=== PATIENT | male | born 1990 | race Caucasian/White ===

== ENCOUNTER 2018-09-01 14:17 | Emergency (ER) | payer MEDICAID, OTHER ==
--- NOTE | 2018-09-01 14:42 | EDPHY ---
H & P Smoking Status: Never smoked Time Seen by Provider: 09/01/18 14:31 HPI/ROS: HPI Right lower abdominal pain. 28-year-old male by private vehicle. The patient was referred to the emergency department from an urgent care. He presents to the emergency department with complaint of right lower quadrant and inguinal area abdominal pain. He reports that he has the the pain ongoing for 2 weeks. He reports that has been intermittent in nature. He reports it is a burning and aching sensation. He reports for the last 2 or 3 days it has been more intense and constant. No associated nausea or vomiting. He has not had any diarrhea. Last bowel movement was this morning and was described as normal. No bloody or melenic stool. Last meal was last night. He had some black coffee this morning. No prior abdominal surgical history. No testicular pain. No urinary complaints. ROS: Constitutional: No fever, no chills. No weakness. Eyes: No discharge. No changes in vision. ENT: No sore throat. No nasal congestion or rhinorrhea. Respiratory: No cough. No shortness of breath. Cardiac: No chest pain, no palpitations. Gastrointestinal: As above. Genitourinary: No hematuria. No dysuria or increased frequency with urination. Musculoskeletal: No back pain. No neck pain. No myalgias or arthralgias. Skin: No rashes. Neurological: No headache. No focal weakness or altered sensation. Past medical history: Asthma. He takes albuterol for this. Social history: Nonsmoker. Here by himself. No alcohol. Physical Exam: General Appearance: Alert, no distress. This patient is responding to questions appropriately and in full sentences. This patient appears well- hydrated and well-nourished. Eyes: Pupils equal and round no pallor or injection. No lid edema, erythema or injection. Respiratory: There are no retractions, lungs are clear to auscultation with good air movement bilaterally. Cardiovascular: Regular rate and rhythm. No murmur. Gastrointestinal: Abdomen is soft with mild to moderate right lower quadrant and right inguinal tenderness on palpation, no masses, bowel sounds normal. No focal tenderness at McBurney's point. No Thompson sign. : Circumcised. No testicular masses, swelling, erythema. Normal testicular lie. No clinical evidence of torsion. Neurological: Motor sensory function is grossly intact. Cranial nerves are normal. Gait is normal. Skin: Warm and dry, no rashes. Musculoskeletal: Neck is supple and nontender. Extremities are symmetrical. All joints range without pain or impingement. Psychiatric: No agitation. No depression. Database: EKG: Imaging: CT abdomen and pelvis with IV contrast: Procedures: Emergency department course: Triage vital signs reviewed and are unremarkable. Bradycardia noted the patient is a young fit male. He is afebrile. IV was placed. He was started on IV normal saline with 500 cc to be given over the next hour. He declines pain medication and antiemetics at this time. CT imaging to be obtained to evaluate for appendicitis versus possible hernia. Care turned over to Dr. Miguel Yost at 3:00 p.m.. Differential Diagnosis: The differential diagnosis on this patient includes but is not limited to appendicitis, hernia, constipation. This represents a partial list of diagnoses considered. These considerations are based on history, physical exam , past history, reassessment and diagnostic testing. (Eddie Hall) Constitutional: Initial Vital Signs Temperature (C) 36.8 C 09/01/18 14:23 Heart Rate 40 L 09/01/18 14:23 Respiratory Rate 16 09/01/18 14:23 Blood Pressure 135/69 H 09/01/18 14:23 O2 Sat (%) 97 09/01/18 14:23 O2 Delivery Mode Room Air Allergies/Adverse Reactions: No Known Allergies Allergy (Unverified 09/01/18 14:23) Home Medications: Medication Instructions Recorded NK [No Known Home Meds] 09/01/18 Medical Decision Making - Diagnostics Imaging Results: Imaging Impressions Abdomen CT 09/01/18 15:12 Impression: 1. Normal CT abdomen and pelvis with contrast enhancement. 2. No CT evidence of appendicitis, abscess or bowel obstruction. 3. 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 Findings discussed with Miguel Yost MD at 15:43 hour, 09/01/2018. ED Course/Re-evaluation: 1515: This patient was signed over to me at 3:00 p.m. Shift change. Patient here with right lower quadrant right inguinal pain. Denies any testicular pain , denies any urinary symptoms. Patient states he has had his pain for approximately a week. However the pain got worse. It is located right lower quadrant right inguinal region. No back pain, no referred pain. Denies any urinary symptoms. No vomiting. No fever. The patient went to urgent care, was for to the emergency room to rule out appendicitis. Patient works as a personal banker, he also does a lot of kick boxing, he denies any injury. On exam he has tenderness over his right inguinal region no obvious hernia. It is worse when he hyper flexes his hip in. I do not appreciate significant right lower quadrant pain there is some mild tenderness. Otherwise exam is unremarkable. CT scan abdomen pelvis with IV contrast shows no evidence of acute appendicitis. No evidence of hernia. Rather unremarkable CT scan. Nothing acute did explain right lower quadrant. Labs reviewed. Normal white blood cell count. Normal electrolytes. Urinalysis negative. 1610: Patient updated, went over lab results and CT results. I do believe this is musculoskeletal. I do recommend he takes inflammatory pain medicine, rest, ice pack, and return emergency room if worsening abdominal pain, groin pain, fever, not doing well. He is comfortable this plan. Return precautions discussed he understands (Miguel Yost) - Data Points Laboratory Results: 09/01/18 14:47 POC Sodium 141 mEq/L mEq/L (135-145) POC Potassium 4.0 mEq/L mEq/L (3.3-5.0) POC Chloride 107.0 mEq/L mEq/L (97-110) POC Total CO2 26 mEq/L mEq/L (22-31) POC BUN 11 mg/dL mg/dL (7-23) POC Creatinine 1.0 mg/dL mg/dL (0.7-1.3) POC Glucose 78 mg/dL mg/dL (70-100) POC Calcium 9.7 mg/dL mg/dL (8.5-10.4) Medications Given: Discontinued Medications Sodium Chloride (Ns) 1,000 mls @ 0 mls/hr IV EDNOW ONE; Wide Open PRN Reason: Protocol Stop: 09/01/18 14:46 Last Admin: 09/01/18 14:54 Dose: 1,000 mls Point of Care Test Results: CBC CBC Collection Date 09/01/18 CBC Collection Time 14:45 WBC 6.28 RBC 5.14 HGB 15.7 HCT 45.4 PLT 229 Neut # 2.28 Neut 36.3 LYMPH # 2.86 LYMPH 45.5 MCV 88.3 Chemistry 04/10/19 14:47 POC Sodium 141 mEq/L mEq/L (135-145) POC Potassium 4.0 mEq/L mEq/L (3.3-5.0) POC Chloride 107.0 mEq/L mEq/L (97-110) POC Total CO2 26 mEq/L mEq/L (22-31) POC BUN 11 mg/dL mg/dL (7-23) POC Creatinine 1.0 mg/dL mg/dL (0.7-1.3) POC Glucose 78 mg/dL mg/dL (70-100) POC Calcium 9.7 mg/dL mg/dL (8.5-10.4) Urine Dip Collection Date 09/01/18 Collection Time 14:45 Specific [place] (1.002-1.030) 1.015 PH (5.0-7.5) 6.0 Leukocytes (Negative) Negative Nitrites (Negative) Negative Protein (Negative) Negative Glucose (Negative) Negative Ketones (Negative) Negative Urobilnogen (0.2-1.0 EU) 0.2 Bilirubin (Negative) Negative Blood (Negative) Negative Departure - Departure Disposition: Home, Routine, Self-Care Clinical Impression: Lower abdominal pain Condition: Good Instructions: Acute Abdominal Pain (ED) Additional Instructions: 1. Return to the emergency room if develops worsening abdominal pain, fever, vomiting 2. Take it easy over the next 48 hr. Referrals: NONE *PRIMARY CARE P,. [Primary Care Provider] - As per Instructions [facility],. [Clinic] - As per Instructions
[2018-09-01] MEDS ORDERED: NS 1,000 ML IV ONE (14:45)
[2018-09-01] MEDS ORDERED: IOPAMIDOL (ISOVUE-300) 100 ML BTL ONE (15:19)
[2018-09-01 16:11] VITALS: BP 121/70
== END 2018-09-01 16:30 | disposition home or self-care (01) ==
LOC: CED 14:17
DX: R10.31 Right lower quadrant pain (principal); E86.9 Volume depletion, unspecified
CPT/HCPCS: 74177-PO; 80048-ER; 85025-QW-ER; 96360-ER; 99285-ER; Q9967